=== PATIENT | male | born 1970 | race Caucasian/White ===

== ENCOUNTER 2017-05-01 16:42 | Emergency (ER) | payer BC, OTHER ==
[2017-05-01] MEDS ORDERED: Morphine 10 MG/ML Syringe IV ONE (16:53)
[2017-05-01] MEDS ORDERED: Sodium Chloride 0.9% 2.5 ML Syringe FLUSH PRN (16:53)
[2017-05-01] MEDS ORDERED: Morphine 2 MG/ML Syringe IVPUSH ONE (16:53)
[2017-05-01] MEDS ORDERED: Sodium Chloride 0.9% 1,000 ML IV ONE (16:53)
[2017-05-01] MEDS ORDERED: Sodium Chloride 0.9% 10 ML Syringe FLUSH PRN (16:53)
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
[2017-05-01] MEDS ORDERED: Ondansetron 4 MG/2 ML SDV IVPUSH ONE (17:13)
[2017-05-01] MEDS ORDERED: Bacitracin Oint 1 GM U/D Packet TOP ONE (17:18)
[2017-05-01 17:41] LABS: CHLORIDE,CL 105 mmol/L (98-110); SODIUM,NA 141 mmol/L (136-146)
[2017-05-01] MEDS ORDERED: Diphtheria,Pertussis(Acell),Tetanus Vaccine 0.5 ML Syringe IM ONE (18:38)
[2017-05-01 21:03] VITALS: BP 140/90
== END 2017-05-01 19:22 | disposition home or self-care (01) ==
LOC: MW.ED 16:42
DX: T20.12XA Burn of first degree of lip(s), initial encounter (principal); T21.11XA Burn of first degree of chest wall, initial encounter; X08.8XXA Exposure to other specified smoke, fire and flames, initial encounter
CPT/HCPCS: 36415; 80053; 85025; 90471; 90715; 96361; 96374; 96375; 99284; G0390; J2270; J2405; J7040